=== PATIENT | male | born 2000 | race Hispanic/Latino ===

== ENCOUNTER 2022-04-03 07:45 | Day surgery (SDC) | payer OTHER ==
[2022-03-31 15:11] LABS: BASOPHILS % (AUTO) 0.8 % (0.0-5.0); EOSINOPHILS % (AUTO) 12.9 % (0.0-8.0); HEMATOCRIT 45.3 % (42-54); MEAN CORPUSCULAR HEMOGLOBIN 30.3 pg (27.0-33.0); MEAN CORPUSCULAR HGB CONC 34.9 g/dL (32.0-36.0); MEAN CORPUSCULAR VOLUME 86.8 fL (79-99); MONOCYTES % (AUTO) 6.9 % (3.0-13.0); PLATELET COUNT (AUTO) 242 K/uL (130-400); RED BLOOD CELL COUNT(AUTO) 5.22 MIL/uL (4.50-6.20); RED CELL DISTRIBUTION WIDTH 11.8 % (11.0-15.5); WHITE BLOOD COUNT (AUTO) 7.8 K/uL (4.8-10.8)
[2022-03-31 15:21] LABS: CREATININE 0.9 mg/dL (0.5-1.5); POTASSIUM 3.9 mmol/L (3.5-5.1)
[2022-03-31 15:22] LABS: PROTHROMBIN TIME 10.9 SEC (9.6-11.6)
[2022-03-31 15:24] LABS: PARTIAL THROMBOPLASTIN TIME 31.3 SEC (26.3-35.5)
[~2022-04-03] VITALS: Ht 167.6 cm; Wt 65.2 kg
[2022-04-03] VITALS (18 sets, daily range): BP systolic 107–142; BP diastolic 55–83
[~2022-04-03 07:45] MED LIST: CEFAZOLIN SODIUM 2 GM VIAL IV SCH; HYDR-3830 PO
[2022-04-03] MEDS ORDERED: LACTATED RINGERS 1000ML 1,000 ML IV ONE ×2 (08:06→08:11)
[2022-04-03] MEDS ORDERED: CEFAZOLIN SODIUM 1 GM VIAL ONE (08:06)
[2022-04-03] MEDS ORDERED: LIDOCAINE PF 100MG/5ML (2%) SYRINGE 5ML ONE (09:36)
[2022-04-03] MEDS ORDERED: DEXAMETHASONE SOD PHOSPHATE 10MG/ML 1ML VIAL ONE (09:36)
[2022-04-03] MEDS ORDERED: PROPOFOL 10 MG/ML 20ML VIAL IV ONE (09:37)
[2022-04-03] MEDS ORDERED: MIDAZOLAM HCL 1 MG/ML 2ML VIAL ONE (09:37)
[2022-04-03] MEDS ORDERED: ONDANSETRON 4MG INJ ONE (09:37)
[2022-04-03] MEDS ORDERED: FENTANYL CITRATE PF 50 MCG/1 ML 2ML VIAL ONE (09:38)
[2022-04-03] MEDS ORDERED: LIDOCAINE 1%-EPI 1:100,000 20 ML VIAL IJ ONE (09:49)
[2022-04-03] MEDS ORDERED: OXYMETAZOLINE HCL SPRAY 15 ML BOTTLE ONE (10:08)
[2022-04-03] MEDS ORDERED: BACITRACIN 28.4 GM OINT TP ONE (10:27)
[2022-04-03] MEDS ORDERED: GLYCOPYRROLATE 1 MG/5 ML SYRINGE ONE (10:55)
[2022-04-03] MEDS ORDERED: NEOSTIGMINE 5MG/5ML SYR IV ONE (10:55)
[2022-04-03] MEDS ORDERED: MEPERIDINE-PF 25 MG/ML SYG ONE (11:23)
== END 2022-04-03 12:45 | disposition home or self-care (01) ==
LOC: DAH 07:45
PROVIDERS: ATTEND Otolaryngology Plastic Surgery within the Head & Neck
DX: J34.2 Deviated nasal septum (principal); J34.3 Hypertrophy of nasal turbinates; J30.9 Allergic rhinitis, unspecified; Z79.899 Other long term (current) drug therapy; Z79.01 Long term (current) use of anticoagulants; F41.9 Anxiety disorder, unspecified; F41.0 Panic disorder [episodic paroxysmal anxiety]; Z82.49 Family history of ischemic heart disease and other diseases of the circulatory system; Z83.3 Family history of diabetes mellitus; Z83.438 Family history of other disorder of lipoprotein metabolism and other lipidemia; Z82.0 Family history of epilepsy and other diseases of the nervous system
CPT/HCPCS: 30520; 30930; 36415; 80048; 85025; 85610; 85730; 87635; A4215; A4221; A4222; A4223; A4649 ×2; A4663; C9803; J0690; J1100; J2001; J2175; J2250; J2405; J2704; J2710; J3010; J3490 ×2; J7120 ×2